=== PATIENT | male | born 1960 | race Caucasian/White ===

== ENCOUNTER 2021-02-26 14:48 | Emergency (ER) | payer BC ==
[2021-02-26 15:04] VITALS: BP 131/91; PULSE 83
[2021-02-26] MEDS ORDERED: Bacitracin Oint 1 GM U/D Packet TOP ONE (15:09)
--- NOTE | 2021-02-26 15:09 | EDM.PDOC ---
ED HPI GENERAL MEDICAL PROBLEM - General Chief Complaint: Skin Complaint Stated Complaint: DOG BITE WRIST Time Seen by Provider: 02/26/21 14:59 Source of Information: Reports: Patient History Limitations: Reports: No Limitations - History of Present Illness INITIAL COMMENTS - FREE TEXT/NARRATIVE: Flako is a 60-year-old male presenting to the ED for evaluation of a dog bite to his right hand at the wrist and palm in the left hand involving the middle finger. The patient tried to get in between his husky and his Labrador retriever when he got bit by the dog's. The patient's last tetanus was in 2019. Bilateral Hand Pain Score (Numeric/FACES): 7 - Related Data Allergies Allergy/AdvReac Type Severity Reaction Status Date / Time No Known Allergies Allergy Verified 07/03/15 08:28 Home Meds: Home Meds Diphenoxylate HCl/Atropine [Lomotil Tablet] 1 each PO DAILY 02/26/21 [History] Past Medical History HEENT History: Reports: Hard of Hearing, Impaired Vision Gastrointestinal History: Reports: Hemorrhoids Musculoskeletal History: Reports: Fracture Immunologic History: Reports: Immunosuppression Other Immunologic History: chemo Oncologic (Cancer) History: Reports: Squamous Cell Carcinoma - Infectious Disease History Infectious Disease History: Reports: Measles - Past Surgical History GI Surgical History: Reports: None, Other (See Below) Dermatological Surgical History: Reports: None ED ROS GENERAL - Review of Systems Review Of Systems: See Below Constitutional: Reports: No Symptoms Musculoskeletal: Reports: Hand Pain (Right wrist pain from the dog bite and left fourth finger pain which has been shredded by another dog bite.) Skin: Reports: Wound (Multiple lacerations through the skin on the right wrist and a jagged, stellate series of lacerations on the dorsal and volar left fourth finger.) Neurological: Reports: Paresthesia (Paresthesias down the distribution of the median nerve of the right hand. There is a laceration just above the median nerve but intact motor, light touch sensation and tendon in this distribution.) ED EXAM, GENERAL - Physical Exam Exam: See Below Exam Limited By: No Limitations General Appearance: Alert, Anxious, Mild Distress Peripheral Pulses: 2+: Radial (L), Radial (R) Extremities: Normal Range of Motion, Normal Capillary Refill, Other (Multiple lacerations from dog bite at the volar and lateral right wrist. These measure 2 cm, 2.3 cm, and 2 cm. Jagged lacerations on the dorsal left fourth finger measuring 3.2 cm and on the volar are surface of the same finger measuring 3.3 cm) Neurological: Alert, Oriented, Normal Cognition, No Motor/Sensory Deficits ED GENERAL MEDICAL PROCEDURES - Laceration/Wound Repair Right Wrist Lac/wound length in cm: 5.3 Appearance: Subcutaneous, Mildly Contaminated Distal NVT: Neuro & Vascular Intact Anesthetic Type: Local Local Anesthesia - Lidocaine (Xylocaine): 1% Plain Skin Prep: Chlorhexidine (Hibiciens) Exploration/Debridement/Repair: Wound Explored, In a Bloodless Field, Explored to Base Closed with: Sutures Suture Size: 4-0 # of Sutures: 7 Suture Type: Nylon, Interrupted Sterile Dressing Applied: Provider Tetanus Status Addressed: Yes Complications: No Left Digit - 4th (Ring) Lac/wound length in cm: 6.5 Appearance: Subcutaneous, Moderately Contaminated Anesthetic Type: Local Local Anesthesia - Lidocaine (Xylocaine): 1% Plain Local Anesthetic Volume: 3cc Skin Prep: Chlorhexidine (Hibiciens) Exploration/Debridement/Repair: Wound Explored, In a Bloodless Field, Explored to Base, Moderate Debridement, No Foreign Material Found, Multiple Flaps Aligned Closed with: Sutures Suture Size: 4-0 # of Sutures: 8 Suture Type: Nylon, Interrupted Sterile Dressing Applied: Provider Tetanus Status Addressed: Yes Complications: No Course - Vital Signs Last Recorded V/S: Last Vital Signs Temp 36.7 C 02/26/21 15:32 Pulse 83 02/26/21 15:32 Resp 24 H 02/26/21 15:32 BP 131/91 H 02/26/21 15:32 Pulse Ox 98 02/26/21 15:32 - Orders/Labs/Meds Meds: Medications Discontinued Medications Generic Name Dose Route Start Last Admin Trade Name Marsha PRN Reason Stop Dose Admin Bacitracin 2 dose 02/26/21 15:09 02/26/21 15:32 Bacitracin Oint 1 Gm U/D Packet TOP 02/26/21 15:10 2 dose ONETIME ONE Administration Lidocaine HCl 5 ml 02/26/21 15:09 02/26/21 15:32 Lidocaine 1% 5 Ml Sdv INJECT 02/26/21 15:10 5 ml ONETIME ONE Administration - Re-Assessments/Exams Free Text/Narrative Re-Assessment/Exam: 02/26/21 16:11 the patient has multiple large dog bites to both hands which would likely get infected. We will put him on Augmentin 875 mg twice daily for 10 days. Indications to return to the ED were discussed. Management of the wounds was also discussed. All questions were answered prior to discharge. Departure - Departure Time of Disposition: 15:59 Disposition: Home, Self-Care 01 Clinical Impression: Dog bite Qualifiers: Encounter type: initial encounter Qualified Code(s): W54.0XXA - Bitten by dog, initial encounter Laceration of multiple sites of right hand and wrist Qualifiers: Encounter type: initial encounter Qualified Code(s): S61.411A - Laceration without foreign body of right hand, initial encounter Laceration of finger Qualifiers: Encounter type: initial encounter Finger: ring finger Damage to nail status: without damage Foreign body presence: without foreign body Laterality: left Qualified Code(s): S61.215A - Laceration without foreign body of left ring finger without damage to nail, initial encounter - Discharge Information Instructions: Animal Bite, Adult, [id number], Laceration Care, Adult, [id number] Referrals: Stu Short MD [Primary Care Provider] - Forms: ED Department Discharge Care Plan Goals: As we discussed, dog bites uniformly become infected. We are going to put you on Augmentin 875 mg twice daily for 10 days to try to preemptively treat this. You will likely experience increased pain, redness, and swelling in the hand for a day or 2 until the antibiotic can start to take effect. Sutures will need to be removed in 10 days which can be done at your primary provider's office. Should you develop any fever, chills, redness going up the arm on either side we should see you back right away. Please keep the dressings that were applied in place for the next 24 hours. After which you may remove them and replace them with what ever dressing you find suitable. I recommend a light coating of Neosporin over the wounds with dressing change. Take Tylenol or ibuprofen for pain. Sepsis Event Note (ED) - Focused Exam Vital Signs: Vital Signs Temp Pulse Resp BP Pulse Ox 02/26/21 15:32 36.7 C 83 24 H 131/91 H 98 02/26/21 15:02 36.7 C 83 24 H 131/91 H 98 - Problem List & Annotations (1) Dog bite SNOMED Code(s): 649454879, 734044304 Code(s): W54.0XXA - BITTEN BY DOG, INITIAL ENCOUNTER Status: Acute Priority: Medium Current Visit: Yes Qualifiers: Encounter type: initial encounter Qualified Code(s): W54.0XXA - Bitten by dog, initial encounter (2) Laceration of finger SNOMED Code(s): 312312244 Code(s): S61.219A - LACERATION W/O FB OF UNSP FINGER W/O DAMAGE TO NAIL, INIT Status: Acute Priority: Medium Current Visit: Yes Qualifiers: Encounter type: initial encounter Finger: ring finger Damage to nail status: without damage Foreign body presence: without foreign body Laterality: left Qualified Code(s): S61.215A - Laceration without foreign body of left ring finger without damage to nail, initial encounter (3) Laceration of multiple sites of right hand and wrist SNOMED Code(s): 541722205, 278823744, [id number], [id number], [id number] Code(s): S61.411A - LACERATION WITHOUT FOREIGN BODY OF RIGHT HAND, INIT ENCNTR; S61.511A - LACERATION WITHOUT FOREIGN BODY OF RIGHT WRIST, INIT ENCNTR Status: Acute Priority: Medium Current Visit: Yes Qualifiers: Encounter type: initial encounter Qualified Code(s): S61.411A - Laceration without foreign body of right hand, initial encounter; S61.511A - Laceration without foreign body of right wrist, initial encounter - Problem List Review Problem List Initiated/Reviewed/Updated: Yes
== END 2021-02-26 16:05 | disposition home or self-care (01) ==
LOC: JP.ED 14:48
DX: S61.255A Open bite of left ring finger without damage to nail, initial encounter (principal); S61.551A Open bite of right wrist, initial encounter; W54.0XXA Bitten by dog, initial encounter
CPT/HCPCS: 12004; 99283-25

== ENCOUNTER 2021-08-08 06:20 | Day surgery (SDC) | payer BC, OTHER ==
[2021-08-08] MEDS ORDERED: Sodium Chloride 0.9% 1,000 ML IV SCH (07:00)
[2021-08-08] MEDS ORDERED: fentaNYL 100 MCG/2 ML SDV ONE (07:21)
[2021-08-08] MEDS ORDERED: Midazolam 1 MG/ML 2 ML SDV ONE (07:21)
[2021-08-08] MEDS ORDERED: Propofol 200 MG/20 ML SDV ONE (07:21)
[2021-08-08 08:46] VITALS: BP 122/93; PULSE 70
== END 2021-08-08 09:40 | disposition home or self-care (01) ==
LOC: JP.SDS 06:20
PROVIDERS: ATTEND Surgery
DX: Z12.11 Encounter for screening for malignant neoplasm of colon (principal); Z85.038 Personal history of other malignant neoplasm of large intestine; Z90.49 Acquired absence of other specified parts of digestive tract
CPT/HCPCS: J2250; J2704; J3010; J7030